=== PATIENT | female | born 1965 | race Caucasian/White ===

== ENCOUNTER → 2016-09-23 | Outpatient (CLI) | payer OTHER | LOC: US 14:07 | DX: E04.0 Nontoxic diffuse goiter (principal); R10.2 Pelvic and perineal pain; E04.1 Nontoxic single thyroid nodule | CPT/HCPCS: 76536; 76830 ==

== ENCOUNTER → 2016-09-25 | Outpatient (CLI) | payer OTHER | LOC: US 09:15 | DX: R10.819 Abdominal tenderness, unspecified site (principal); K76.0 Fatty (change of) liver, not elsewhere classified | CPT/HCPCS: 76700 ==

== ENCOUNTER → 2016-10-24 | Outpatient (CLI) | payer OTHER | LOC: RAD 11:06 | DX: R31.9 Hematuria, unspecified (principal); M54.5 Low back pain | CPT/HCPCS: 74000 ==

== ENCOUNTER → 2021-03-18 | Outpatient (CLI) | payer OTHER | LOC: KOH-I 15:35 | DX: M79.671 Pain in right foot (principal) | CPT/HCPCS: 73630 ==